=== PATIENT | male | born 1980 | race Caucasian/White ===

== ENCOUNTER 2016-12-13 15:39 | Emergency (ER) | payer MEDICAID ==
[2016-12-13] MEDS ORDERED: NS 0.9% 1000 ML* 1,000 ML IV ONE (16:50)
[2016-12-13 17:16] LABS: Hematocrit 47 % (42-52); Hemoglobin 15.9 g/dl (14.0-18.0); Mean Corpuscular HGB Conc 34 g/dl (31-36); Mean Corpuscular Hemoglobin 32 pg (27-31); Mean Corpuscular Volume 94 fL (80-94); Mean Platelet Volume 8 um3 (7.4-10.4); Red Blood Count 4.97 10^6/ul (4.0-5.4); Red Cell Distribution Width 13 % (10.5-15); White Blood Count 9.9 10^3/ul (3.5-10.8)
[2016-12-13 17:25] LABS: ALT 66 U/L (7-52); AST 30 U/L (13-39); Albumin 4.5 g/dL (3.2-5.2); Alkaline Phosphatase 53 U/L (34-104); Anion Gap 8 mmol/L (2-11); BUN/Creatinine Ratio 19.1 (8-20); Blood Urea Nitrogen 18 mg/dL (6-24); CO2 Carbon Dioxide 26 mmol/L (22-32); Calcium 9.6 mg/dL (8.6-10.3); Chloride 104 mmol/L (101-111); Creatine Kinase 91 U/L (10-223); EGFR African American 118.1 (>60); EGFR Non-African American 91.9 (>60); Globulin 3.2 g/dL (2-4); Glucose 100 mg/dL (70-100); Magnesium 2.1 mg/dL (1.9-2.7); Potassium 4.2 mmol/L (3.5-5.0); Sodium 138 mmol/L (133-145); Total Protein 7.7 g/dL (6.4-8.9)
[2016-12-13 17:57] LABS: TSH (Thyroid Stimulating Horm) 1.06 mcIU/mL (0.34-5.60)
[2016-12-13 18:10] LABS: C Reactive Protein < 1.00 mg/L (< 5.00)
[2016-12-13 19:32] VITALS: BP 168/97
[2016-12-13 19:38] LABS: Urine Bilirubin Negative (Negative); Urine Glucose Negative (Negative); Urine Nitrite Negative (Negative)
[2016-12-13 19:40] LABS: Urine Bacteria Absent (Absent)
[2016-12-13 19:47] LABS: Benzodiazepine Urine Screen None Detected (None Detect)
--- NOTE | 2016-12-13 21:32 | ED ---
Dyllan Miguel Alok, scribed for Willian Herrera MD on 12/13/16 at 1654 . Back Pain - HPI Summary HPI Summary: 36M presents to the ED for lower right sided back pain. Patient notes muscle spasm on the right side of the lower back as well as left shoulder, jaw, and tongue. Pt is currently a patient at [facility] for alcohol rehabilitation. His last ETOH drink was on October 31 2016. Pt also notes body tremors. Pt denies any recent changes in medications. - History of Current Complaint Chief Complaint: EDGeneral Stated Complaint: MUSCLE SPASM Time Seen by Provider: 12/13/16 16:11 Hx Obtained From: Patient Onset/Duration: Lasting Hours, Still Present Onset/Duration: Started Hours Ago, Atraumatic, Still Present Timing: Constant Back Pain Location: Is Discrete @ - right lower back, Radiates To - left shouder Severity Initially: Moderate Severity Currently: Moderate Character: Spasmodic Aggravating Symptom(s): Nothing Alleviating Symptom(s): Nothing - Allergies/Home Medications Allergies/Adverse Reactions: Allergies Allergy/AdvReac Type Severity Reaction Status Date / Time No Known Allergies Allergy Verified 12/13/16 15:45 PMH/Surg Hx/FS Hx/Imm Hx Endocrine/Hematology History: Denies: Hx Diabetes Cardiovascular History: Denies: Hx Hypertension Infectious Disease History: No Infectious Disease History: Denies: Traveled Outside the [place] in Last 30 Days - Family History Known Family History: Negative: Hypertension - Social History Occupation: Unemployed Alcohol Use: None Alcohol Amount: denies Substance Use Type: Reports: Other Substance Use Comment - Amount & Last Used: at [facility], did not state drugs Smoking Status (MU): Former Smoker Review of Systems Negative: Fever Positive: Other - lower back pain, left shoulder pain, jaw pain All Other Systems Reviewed And Are Negative: Yes Physical Exam Triage Information Reviewed: Yes Vital Signs On Initial Exam: Initial Vitals Temp Pulse Resp BP Pulse Ox 99 F 83 16 149/93 100 12/13/16 15:40 12/13/16 15:40 12/13/16 15:40 12/13/16 15:40 12/13/16 15:40 Vital Signs Reviewed: Yes Appearance: Positive: Well-Appearing, No Pain Distress Skin: Positive: Warm, Skin Color Reflects Adequate Perfusion, Dry Head/Face: Positive: Normal Head/Face Inspection Eyes: Positive: Normal ENT: Positive: Normal ENT inspection Neck: Positive: Supple, Nontender Respiratory/Lung Sounds: Positive: Clear to Auscultation, Breath Sounds Present Cardiovascular: Positive: RRR Abdomen Description: Positive: Nontender, Soft Bowel Sounds: Positive: Present Musculoskeletal: Positive: Normal Neurological: Positive: Normal Psychiatric: Positive: Normal, Affect/Mood Appropriate - Cora Coma Scale Coma Scale Total: 15 Diagnostics - Vital Signs Vital Signs Temp Pulse Resp BP Pulse Ox 12/13/16 15:40 99 F 83 16 149/93 100 - Laboratory Lab Results: Lab Results 12/13/16 12/13/16 12/13/16 Range/Units 17:00 17:00 17:00 WBC 9.9 (3.5-10.8) 10^3/ul RBC 4.97 (4.0-5.4) 10^6/ul Hgb 15.9 (14.0-18.0) g/dl Hct 47 (42-52) % MCV 94 (80-94) fL MCH 32 H (27-31) pg MCHC 34 (31-36) g/dl RDW 13 (10.5-15) % Plt Count 270 (150-450) 10^3/ul MPV 8 (7.4-10.4) um3 Neut % (Auto) 70.3 (38-83) % Lymph % (Auto) 17.9 L (25-47) % [place] % (Auto) 6.6 (1-9) % Eos % (Auto) 4.6 (0-6) % Baso % (Auto) 0.6 (0-2) % Absolute Neuts (auto) 7.0 (1.5-7.7) 10^3/ul Absolute Lymphs (auto) 1.8 (1.0-4.8) 10^3/ul Absolute Monos (auto) 0.7 (0-0.8) 10^3/ul Absolute Eos (auto) 0.5 (0-0.6) 10^3/ul Absolute Basos (auto) 0.1 (0-0.2) 10^3/ul Absolute Nucleated RBC 0.01 10^3/ul Nucleated RBC % 0.1 Sodium 138 (133-145) mmol/L Potassium 4.2 (3.5-5.0) mmol/L Chloride 104 (101-111) mmol/L Carbon Dioxide 26 (22-32) mmol/L Anion Gap 8 (2-11) mmol/L BUN 18 (6-24) mg/dL Creatinine 0.94 (0.67-1.17) mg/dL Est GFR ( Amer) 118.1 (>60) Est GFR (Non-Af Amer) 91.9 (>60) BUN/Creatinine Ratio 19.1 (8-20) Glucose 100 (70-100) mg/dL Lactic Acid 1.6 (0.5-2.0) mmol/L Calcium 9.6 (8.6-10.3) mg/dL Magnesium 2.1 (1.9-2.7) mg/dL Total Bilirubin 0.40 (0.2-1.0) mg/dL AST 30 (13-39) U/L ALT 66 H (7-52) U/L Alkaline Phosphatase 53 (34-104) U/L Total Creatine Kinase 91 (10-223) U/L Troponin I 0.00 (<0.04) ng/mL C-Reactive Protein < 1.00 (< 5.00) mg/L Total Protein 7.7 (6.4-8.9) g/dL Albumin 4.5 (3.2-5.2) g/dL Globulin 3.2 (2-4) g/dL Albumin/Globulin Ratio 1.4 (1-3) TSH 1.06 (0.34-5.60) mcIU/mL Urine Color Urine Appearance Urine pH (5-9) Ur Specific Rover (1.010-1.030) Urine Protein (Negative) Urine Ketones (Negative) Urine Blood (Negative) Urine Nitrate (Negative) Urine Bilirubin (Negative) Urine Urobilinogen (Negative) Ur Leukocyte Esterase (Negative) Urine WBC (Auto) (Absent) Urine RBC (Auto) (Absent) Urine Bacteria (Absent) Urine Glucose (Negative) Urine Ascorbic Acid (Negative) Urine Opiates Screen (None Detect) Ur Barbiturates Screen (None Detect) Ur Phencyclidine Scrn (None Detect) Ur Amphetamines Screen (None Detect) U Benzodiazepines Scrn (None Detect) Urine Cocaine Screen (None Detect) U Cannabinoids Screen (None Detect) 12/13/16 12/13/16 Range/Units 19:20 19:20 WBC (3.5-10.8) 10^3/ul RBC (4.0-5.4) 10^6/ul Hgb (14.0-18.0) g/dl Hct (42-52) % MCV (80-94) fL MCH (27-31) pg MCHC (31-36) g/dl RDW (10.5-15) % Plt Count (150-450) 10^3/ul MPV (7.4-10.4) um3 Neut % (Auto) (38-83) % Lymph % (Auto) (25-47) % [place] % (Auto) (1-9) % Eos % (Auto) (0-6) % Baso % (Auto) (0-2) % Absolute Neuts (auto) (1.5-7.7) 10^3/ul Absolute Lymphs (auto) (1.0-4.8) 10^3/ul Absolute Monos (auto) (0-0.8) 10^3/ul Absolute Eos (auto) (0-0.6) 10^3/ul Absolute Basos (auto) (0-0.2) 10^3/ul Absolute Nucleated RBC 10^3/ul Nucleated RBC % Sodium (133-145) mmol/L Potassium (3.5-5.0) mmol/L Chloride (101-111) mmol/L Carbon Dioxide (22-32) mmol/L Anion Gap (2-11) mmol/L BUN (6-24) mg/dL Creatinine (0.67-1.17) mg/dL Est GFR ( Amer) (>60) Est GFR (Non-Af Amer) (>60) BUN/Creatinine Ratio (8-20) Glucose (70-100) mg/dL Lactic Acid (0.5-2.0) mmol/L Calcium (8.6-10.3) mg/dL Magnesium (1.9-2.7) mg/dL Total Bilirubin (0.2-1.0) mg/dL AST (13-39) U/L ALT (7-52) U/L Alkaline Phosphatase (34-104) U/L Total Creatine Kinase (10-223) U/L Troponin I (<0.04) ng/mL C-Reactive Protein (< 5.00) mg/L Total Protein (6.4-8.9) g/dL Albumin (3.2-5.2) g/dL Globulin (2-4) g/dL Albumin/Globulin Ratio (1-3) TSH (0.34-5.60) mcIU/mL Urine Color Yellow Urine Appearance Clear Urine pH 6 (5-9) Ur Specific Rover 1.025 (1.010-1.030) Urine Protein 1+(30 mg/dl) H (Negative) Urine Ketones Negative (Negative) Urine Blood Negative (Negative) Urine Nitrate Negative (Negative) Urine Bilirubin Negative (Negative) Urine Urobilinogen Negative (Negative) Ur Leukocyte Esterase Negative (Negative) Urine WBC (Auto) Trace(0-5/hpf) (Absent) Urine RBC (Auto) Trace(0-2/hpf) (Absent) Urine Bacteria Absent (Absent) Urine Glucose Negative (Negative) Urine Ascorbic Acid * H (Negative) Urine Opiates Screen None detected (None Detect) Ur Barbiturates Screen None detected (None Detect) Ur Phencyclidine Scrn None detected (None Detect) Ur Amphetamines Screen None detected (None Detect) U Benzodiazepines Scrn None detected (None Detect) Urine Cocaine Screen None detected (None Detect) U Cannabinoids Screen None detected (None Detect) Result Diagrams: 12/13/16 17:00 12/13/16 17:00 Lab Statement: Any lab studies that have been ordered have been reviewed, and results considered in the medical decision making process. - EKG 1559 Cardiac Rate: NL - 91 bpm EKG Rhythm: Sinus Rhythm EKG Interpretation: Early repolarization Back Pain Course/Dx - Course Course Of Treatment: Mr. Rodrigez presented from inpatient [facility] with a C/O mucle cramping. It started on the low right back and moved to the high left. He has been at [facility] for a week and in long-term for 6 weeks prior to that. He is in [facility] for ETOH and it has been 7 weeks since he had a drink. He denies other drugs. His W/U here is negative. - Diagnoses Provider Diagnoses: Cramp and spasm Discharge - Discharge Plan Condition: Stable Disposition: HOME Patient Education Materials: Muscle Spasm (ED) Referrals: No Primary Care Phys,NOPCP [Primary Care Provider] - Additional Instructions: Please follow up with the Doctor at [facility] The documentation as recorded by the Dyllan haile Alok accurately reflects the service I personally performed and the decisions made by me, Willian Herrera MD.
== END 2016-12-13 19:37 | disposition home or self-care (01) ==
LOC: ED 15:39
DX: M25.512 Pain in left shoulder (principal); R25.2 Cramp and spasm; M54.5 Low back pain
CPT/HCPCS: 36415; 80053; 80307; 81003; 81015; 82550; 83605; 83735; 84443; 84484; 85025; 86140; 93005; 99283